=== PATIENT | female | born 1990 | race Caucasian/White ===

== ENCOUNTER 2017-10-01 14:47 | Emergency (ER) | payer SELFPAY ==
[2017-10-01] MEDS ORDERED: METH30CP PO (14:56)
[2017-10-01] MEDS ORDERED: BCP PO (14:56)
[2017-10-01] MEDS ORDERED: DEXAMETHASONE 4 MG TAB PO ONE (15:45)
[2017-10-01] MEDS ORDERED: SILVER NITRATE SWABS 10 PKG TP ONE (15:45)
[2017-10-01 17:30] VITALS: BP 107/83
--- NOTE | 2017-10-01 17:57 | ER Report ---
History and Physical Time Seen By MD: 16:00 Hx. of Stated Complaint: RIGHT TONSIL BLEEDING X 1 HOUR, NO KNOWN INJURY HPI/ROS This is a 27-year-old female who lives in [place] but spends her pier[place] in [place]. She is otherwise healthy with no medical problems. She presents to the emergency department with an enlarged right tonsil that started yesterday. She has very minimal pain. No fever chills. No change of voice. Today she noticed bleeding from her right tonsil. She denies any trauma including any sharp foods that she has eaten lately. She is able to take by mouth without problems. Does not smoke, no chewing tobacco. Allergies: Coded Allergies: No Known Drug Allergies (Unverified , 10/01/17) Home Meds Reported Medications [Bcp] No Conflict Check, 1 TAB PO DAILY 10/01/17 Methylphenidate Hcl (METHYLPHENIDATE ER) 30 Mg Cpmp.50.50, 30 MG PO DAILY 10/01/17 Reviewed Nurses Notes: Yes Old Medical Records Reviewed: Yes Hx Smoking: No Smoking Status: Never Smoker Exposure to Second Hand Smoke?: No Hx Substance Use Disorder: No Hx Alcohol Use: No Constitutional Vital Sign - Last 24 Hours 10/01/17 10/01/17 10/01/17 10/01/17 14:52 15:00 15:30 15:45 Temp 99.0 Pulse 88 88 83 85 Resp 16 B/P (MAP) 139/89 124/94 (104) 113/77 (89) Pulse Ox 98 97 96 96 O2 Delivery Room Air 10/01/17 10/01/17 10/01/17 16:00 16:15 16:30 Pulse 89 80 81 B/P (MAP) 121/90 (100) 111/89 (96) Pulse Ox 96 95 97 Physical Exam General Appearance: The patient is alert, has no immediate need for airway protection and no current signs of toxicity. HEENT: enlarged right tonsil with a small bleed Respiratory: Chest is non tender, lungs are clear to auscultation. Cardiac: regular rate and rhythm Gastrointestinal: Abdomen is soft and non tender, no masses, bowel sounds normal. Extremities have full range of motion and are non tender. Skin: No rashes or lesions. DIFFERENTIAL DIAGNOSIS: After history and physical exam differential diagnosis was considered for Medical Decision Making Data Points Laboratory Hematology Test 10/01/17 15:50 Monoscreen Negative (NEGATIVE) Group A Streptococcus Screen Negative (NEGATIVE) Chemistry Test 10/01/17 15:50 Monoscreen Negative (NEGATIVE) Group A Streptococcus Screen Negative (NEGATIVE) ED Course/Re-evaluation ED Course 27-year-old otherwise healthy female nonsmoker does not use chewing tobacco. She presents to the emergency department with an enlarged right tonsil, a necrotic-appearing ulceration on her right tonsil, and an area of scant bleeding. The bleeding was controlled with silver nitite stick. She denies any pain. Negative for fever or chills. Negative strep and negative Monospot. She is able to take by mouth. I also gave her 10 mg of Decadron. I do not think that this is infectious. Although she is very low risk for a malignancy, I will have her follow-up with Dr. Bauer for definitive care. Decision to Disposition Date: Oct 01, 2017 Decision to Disposition Time: 17:55 Depart Departure Latest Vital Signs Vital Signs Date Time Temp Pulse Resp B/P (MAP) Pulse Ox O2 Delivery O2 Flow Rate FiO2 10/01/17 16:30 81 111/89 (96) 97 10/01/17 14:52 99.0 16 Room Air Impression: Primary Impression: ACUTE TONSILLITIS, UNSPECIFIED Condition: Improved Referrals: REGIS BAUER JR, MD Additional Instructions: If your symptoms worsen, return to the emergency department. Otherwise follow- up with Dr. Regis Bauer for further evaluation. GREGG BETANCOURT MD Oct 01, 2017 17:57
== END 2017-10-01 18:07 | disposition home or self-care (01) ==
LOC: ER 15:02
DX: J03.90 Acute tonsillitis, unspecified (principal)
CPT/HCPCS: 36415; 86308; 87081; 87880; 99284; J8540